=== PATIENT | female | born 1970 | race Caucasian/White ===

== ENCOUNTER → 2016-07-19 | Outpatient (CLI) | payer BC ==
[~2016-07-19] MED LIST: ANTIVERT PO; ATENOLOL PO; ATENOLOL50 MG PO; COLACE PO; ELIMITE60 GM TOP; FERRO-TIME325 MG PO; FIORICET 50-301 EACH PO; FLEXERIL PO; FLEXERIL10 M1 PO; KLONOPIN1 MG PO; LEVAQUIN250 MG PO; LORTAB 7.5-5001 TAB PO; LORTAB 7.51 TAB 7.5/ PO; NEURONTIN100 MG PO; PHENERGAN25 MG PO; PREVACID PO; PREVACID15 M1 PO; PROZAC40 MG PO; REQUIP1 MG PO; REQUIP4 MG PO; ZITHROMAX PO; ZOFRAN8 MG PO
--- NOTE | ~2016-07-19 | MR113 ---
[facility] A Service [facility] RADIOLOGY TEXT RESULTS PATIENT: JON ALEMAN LOCATION: [facility] : 68 UNIT #: [id number] AGE: [address]: Barrett Morrison MD SEX: F ORDER DR: [id number] [address] [id number] MR#: [id number] Acc #: [id number] NAME: JON ALEMAN : 1970 SEX: F STUDY DATE/TIME: 07/19/2016 11:11 UNIT: [facility] ROOM: STUDY DESCRIPTION: MR Lumbar Wo Contrast Attending Physician: Barrett Morrison M.D. Referring Physician: Barrett Morrison M.D. Ordering Physician: Barrett Morrison M.D. Primary Care Physician: No Primary Care Physician MRI CENTER REPORT This report is preliminary unless electronic signature is present. EXAM Lumbar MRI 07/19/2016 HISTORY Low back pain that radiates to the right lower extremity for the past 6 months, worsening recently. TECHNIQUE Multiplanar imaging of the lumbar spine was performed with short and long TR. FINDINGS Alignment is satisfactory. At L1-L2 and L2-L3 the discs are normal. There is mild facet hypertrophy. At L3-4 there is disc space narrowing with mild broad-based disc bulging and moderate bilateral facet hypertrophy. At L4-5 there is mild disc space narrowing without significant bulging and moderate bilateral facet hypertrophy. The left foramen is mildly narrowed. At L5-S1 the disc is degenerated without significant bulging. There is moderate bilateral facet disease right worse than left. This causes only mild right foraminal narrowing. No disc herniation is seen. No exiting nerve root compression is seen on either side. The conus is normal. There is no evidence of marrow edema or paraspinous mass. IMPRESSION [facility] A Service [facility] RADIOLOGY TEXT RESULTS PATIENT: JON ALEMAN LOCATION: [facility] : 68 UNIT #: [id number] AGE: [address]: Barrett Morrison MD SEX: F ORDER DR: Mild degenerative disc disease at the lower 3 lumbar levels with generally [id number] facet arthropathy throughout the lumbar spine as described above level by level. There is asymmetric mild foraminal narrowing at L4-5 on the left and L5-S1 on the right but no exiting nerve root compression is seen. Dictated by... Bryant Dee M.D. THIS IS AN ELECTRONICALLY VERIFIED REPORT Bryant Dee M.D. at 07/19/2016 4:39 PM AMINATA/lucrecia TD: 07/19/2016 15:22 JOB #: [id number] MRI CENTER REPORT Page 1 of 1
== END | disposition home or self-care (01) ==
LOC: SMRI 09:59
DX: M54.16 Radiculopathy, lumbar region (principal); M51.16 Intervertebral disc disorders with radiculopathy, lumbar region
CPT/HCPCS: 72148